=== PATIENT | male | born 1995 | race Caucasian/White ===

== ENCOUNTER 2018-07-13 00:55 | Emergency (ER) | payer BC ==
[~2018-07-13] VITALS: Ht 177.8 cm; Wt 59.0 kg
[2018-07-13 00:59] VITALS: BP 140/60
--- NOTE | 2018-07-13 01:02 | NUR ---
TO LOBBY A/E BED, AMBULATORY
--- NOTE | 2018-07-13 01:47 | NUR ---
PT AMBULATED TO ER BED 02
--- NOTE | 2018-07-13 02:08 | NUR ---
22 Y/O M PRESENTED TO ED WITH C/O PALPITATIONS X 12 HOURS. AAOX4. PER PT, "ABOUT TO BOARD A FLIGHT THEN MY HEART STARTED RACING AND I WAS SHAKING. I'VE HAD PANIC ATTACKS BEFORE BUT THIS WAS DIFFERENT." SELF MEDICATED WITH SEROQUEL AND MELATONIN. PERSONAL STESSORS, PT WILL BE MOVING SOON. PT PUT ON FULL MONITORING SYSTEM. NSR AND HR 57. FAMILY AT BEDSIDE. ERMD NOTIFIED. WILL CONTINUE TO MONITOR. HX: ANXIETY, DEPRESSION.
--- NOTE | 2018-07-13 02:30 | NUR ---
EKG PERFORMED WITH FAMILY MEMBER AT BEDSIDE. PT COVERED IN GOWN DURING PROCEDURE
[2018-07-13] MEDS ORDERED: LORazepam 1 MG TAB PO ONE (03:10)
[2018-07-13 04:02] VITALS: BP 108/67
== END 2018-07-13 04:00 | disposition home or self-care (01) ==
LOC: MED 00:55
DX: F41.9 Anxiety disorder, unspecified (principal); R00.2 Palpitations; R42 Dizziness and giddiness
CPT/HCPCS: 93005; 99284